=== PATIENT | female | born 1970 | race Asian ===

== ENCOUNTER 2018-01-02 19:13 | Emergency (ER) | payer BC ==
[2018-01-02] MEDS: IBUPROFEN 600 MG TAB PO (20:06)
== END 2018-01-02 21:10 | disposition home or self-care (01) ==
LOC: FTE 19:13
DX: S49.92XA Unspecified injury of left shoulder and upper arm, initial encounter (principal); W07.XXXA Fall from chair, initial encounter; Y92.9 Unspecified place or not applicable
CPT/HCPCS: 73030; 99283-25

== ENCOUNTER → 2018-01-03 | Outpatient (CLI) | payer BC | END | disposition home or self-care (01) | LOC: EKG 08:26 | DX: I07.1 Rheumatic tricuspid insufficiency (principal); R06.09 Other forms of dyspnea | CPT/HCPCS: 93306 ==

== ENCOUNTER → 2018-03-23 | Outpatient (CLI) | payer BC | END | disposition home or self-care (01) | LOC: C/S 09:19 | DX: R10.31 Right lower quadrant pain (principal) | CPT/HCPCS: 74176 ==

== ENCOUNTER → 2018-08-25 | Outpatient (CLI) | payer BC | END | disposition home or self-care (01) | LOC: U/S 07:54 | DX: D25.9 Leiomyoma of uterus, unspecified (principal); R10.2 Pelvic and perineal pain | CPT/HCPCS: 76830; 76856 ==

== ENCOUNTER 2018-10-30 13:36 | Emergency (ER) | payer BC ==
[2018-10-30 14:44] LABS: ADD MAN DIFF? NO
[2018-10-30 14:46] LABS: WHITE BLOOD COUNT 5.7 10^3/ul (4.8-10.8)
[2018-10-30 14:46] LABS: BASOPHILS % 0.5 % (0.0-2.0); EOSINOPHILS % 0.4 % (0.0-7.0); HEMATOCRIT 38.3 % (37.0-47.0); HEMOGLOBIN 12.3 g/dl (12.0-16.0); LYMPHOCYTES # 1.1 10^3/ul (0.8-2.9); LYMPHOCYTES % 20.1 % (15.0-51.0); MEAN CORPUSCULAR HEMOGLOBIN 28.6 pg (29.0-33.0); MEAN CORPUSCULAR HGB CONC 32.1 g/dl (32.0-37.0); MEAN CORPUSCULAR VOLUME 89.1 fl (82.0-101.0); MEAN PLATELET VOLUME 10.7 fl (7.4-10.4); MONOCYTE # 0.4 10^3/ul (0.3-0.9); NEUTROPHIL # 4.1 10^3/ul (1.6-7.5); NEUTROPHILS % 71.6 % (39.0-77.0); PLATELET COUNT 212 10^3/UL (140-415); RED CELL DISTRIBUTION WIDTH 12.7 % (11.5-14.5)
[2018-10-30 15:03] LABS: ALANINE AMINOTRANSFERASE 40 IU/L (13-69); ALBUMIN 4.4 g/dl (3.3-4.9); ALBUMIN/GLOBULIN RATIO 1.18; ALKALINE PHOSPHATASE 51 IU/L (42-121); ANION GAP 7 (5-13); ASPARTATE AMINO TRANSFERASE 29 IU/L (15-46); BILIRUBIN,INDIRECT 0.9 mg/dl (0-1.1); BILIRUBIN,TOTAL 0.9 mg/dl (0.2-1.3); BLOOD UREA NITROGEN 11 mg/dl (7-20); CALCIUM 9.5 mg/dl (8.4-10.2); CARBON DIOXIDE 28 mmol/L (21-31); CHLORIDE 103 mmol/L (97-110); Estimated GFR > 60 mL/min (>60); GLUCOSE 118 mg/dl (70-220); POTASSIUM 3.9 mmol/L (3.5-5.1); SODIUM 138 mmol/L (135-144); TOTAL PROTEIN 8.1 g/dl (6.1-8.1)
[2018-10-30 15:15] LABS: TROPONIN-I < 0.012 ng/ml (0.000-0.120)
[2018-10-30 15:37] LABS: THYROID STIMULATING HORMONE < 0.015 MIU/L (0.465-4.680)
[2018-10-30] MEDS: KETOROLAC 15 MG INJ IV (15:40)
[2018-10-30] MEDS: SOD CHLORIDE 0.9% 1,000 ML IV (15:40)
[2018-10-30] MEDS: ONDANSETRON 4 MG INJ IV (15:40)
[2018-10-30] MEDS: PROPRANOLOL 20 MG TAB PO (16:33)
[2018-10-30 17:06] LABS: ADD UMIC YES; UR ASCORBIC ACID NEGATIVE (NEGATIVE); UR BILIRUBIN (Dip) NEGATIVE (NEGATIVE); UR BLOOD (Dip) 1+ mg/dL (NEGATIVE); UR CLARITY CLEAR (CLEAR); UR COLOR STRAW (YELLOW); UR GLUCOSE (Dip) NEGATIVE (NEGATIVE); UR KETONES (Dip) NEGATIVE (NEGATIVE); UR LEUKOCYTE ESTERASE (Dip) NEGATIVE Leu/ul (NEGATIVE); UR NITRITE (Dip) NEGATIVE (NEGATIVE); UR RBC 3 /HPF (0-5); UR SPECIFIC GRAVITY (Dip) 1.004 (1.003-1.030); UR SQUAMOUS EPITHELIAL CELL FEW /HPF (FEW); UR TOTAL PROTEIN (Dip) NEGATIVE (NEGATIVE); UR UROBILINOGEN (Dip) NEGATIVE (NEGATIVE); UR WBC 1 /HPF (0-5)
[2018-10-30 17:06] LABS: FREE T3 > 22.80 pg/ml (2.77-5.27)
[2018-10-30 17:21] LABS: FREE T4 (FREE THYROXINE) 3.21 ng/dl (0.64-1.79)
[2018-10-30 18:23] LABS: TRIIODOTHYRONINE > 7.81 ng/ml (0.97-1.69)
[2018-10-30] MEDS: ATENOLOL 25 MG TAB PO (19:10)
[2018-10-30] MEDS: METHIMAZOLE 5 MG TAB PO (19:10)
[2018-10-30] MEDS ORDERED: PROPRANOLOL 40 MG TAB PO (21:00)
== END 2018-10-30 19:18 | disposition home or self-care (01) ==
LOC: E/R 13:36
DX: E05.90 Thyrotoxicosis, unspecified without thyrotoxic crisis or storm (principal)
CPT/HCPCS: 36415; 71045; 80053; 81001; 84439; 84443; 84480; 84481; 84484; 84703; 85025; 93005; 96374; 96375; 99285-25